=== PATIENT | male | born 1995 | race African-American/Black ===

== ENCOUNTER 2017-07-21 17:14 | Emergency (ER) | payer SELFPAY ==
[2017-07-21 17:15] VITALS: BP 111/72; PULSE 76; RESP 16; TEMP 36.9; O2SAT 98; BMI 23.2
--- NOTE | 2017-07-21 17:55 | RAD_ITS ---
STUDY: X-RAY - NASAL BONES REASON FOR EXAM: Male, 21 years old. Trauma TECHNIQUE: 3 view(s) of the nasal bones. COMPARISON: None. FINDINGS: Hairline fracture of the nasal bones Normal anterior nasal spine. There is no demonstrated soft tissue swelling. The remaining visualized osseous structures are normal. Normal visualized paranasal sinuses. RAD/Nasal Bones min 3 Views IMPRESSION: Hairline fracture of the nasal bones Electronically Signed: Garo Bustos MD at 18:43 EDT , Service support ,
--- NOTE | 2017-07-21 18:24 | ED.DCSUM_ITS ---
- ER Visit Summary Date of Service: 07/21/17 Chief Complaint: Nose injury History of Present Illness: The patient is a 21 M who reports he was playing basketball and got elbowed in the nose. He denies any bleeding. No loss of consciousness. No loose teeth or malocclusion. Physical Examination: Vitals: Stable. Afebrile. Head: Soft tissue swelling monitor initial patient over the bridge of his nose. No nasal septal hematoma. Neck: No vertebral tenderness. Full ROM without difficulty. Cleared by NEXUS criteria. Back: No vertebral tenderness. General: A&O x 3. NAD. Cardiovascular exam: Regular rate and rhythm, no murmur, rub or gallop. Respiratory exam: Chest nontender. No crepitus. Clear to auscultation bilaterally. No wheezes or stridor. Abdominal exam: Soft, nontender, nondistended, normal bowel sounds. No pain in RUQ or LUQ specifically. No peritoneal signs. Extremity: Atraumatic. No pain with range of motion. Test Results: X-ray shows a minimally displaced fracture. Emergency Department Course and Treatment: She will was treated with naproxen. Treatment Plan: Patient will be discharged instructions follow-up Dr. Horowitz in 2 weeks if he is not happy with the appearance of his nose or is having a difficult time breathing. Disposition: To home in improved and stable condition. Impression: 1. Nasal fracture. This note was generated with [employer] dictation software. It may contain incorrect words, spelling, and punctuation that were not noted in review of the chart prior to signing ED Disposition - Plan for ED Patient: Disposition: Home or Assisted Living Chief Complaint: Head Injury Instructions: ED Fx Nasal Conf W X Ray Prescriptions: Naproxen [Naprosyn] 500 mg PO BID #14 tablet Referrals: Jose Francisco Horowitz MD [STAFF PHYSICIAN] - 10-14 Days if not better
[2017-07-21] MEDS: Naproxen 250 MG Tablet 500 MG PO (18:30)
== END 2017-07-21 18:30 | disposition home or self-care (01) ==
LOC: ED 18:47
PROVIDERS: Emergency Provider Emergency Medicine
DX: S02.2XXA Fracture of nasal bones, initial encounter for closed fracture (principal); W50.0XXA Accidental hit or strike by another person, initial encounter; Y93.67 Activity, basketball; Y92.9 Unspecified place or not applicable; Y99.8 Other external cause status
CPT/HCPCS: 70160; 99283

== ENCOUNTER 2017-10-08 03:55 | Emergency (ER) | payer SELFPAY ==
[2017-10-08 03:56] VITALS: BP 147/100; PULSE 80; RESP 18; TEMP 36.4; O2SAT 100; BMI 23.8
--- NOTE | 2017-10-08 04:17 | ED.DCSUM_ITS ---
- ER Visit Summary Date of Service: 10/08/17 Chief Complaint: [] Nausea secondary to alcohol intoxication History of Present Illness: The patient is a 22 M [] he stated he drank alcohol tonight vodka. [birth year] today. He feels nauseated. Comes in for further evaluation. Current severity is mild Physical Examination: [] Vital signs reviewed General: Well-nourished well-developed Head: Normocephalic atraumatic Eyes: Pupils equal round and reactive to light extraocular movements intact ENT: TMs clear no hemotympanum no trauma Neck: Nontender full range of motion Cardiovascular: Regular rate rhythm no murmurs normal S1-S2 Respiratory: No distress clear to auscultation bilaterally chest nontender Abdomen: Soft nontender nondistended normal bowel sounds no masses Back: Nontender no CVA tenderness Extremities: Nontender active range of motion ?4 extremities no trauma Skin: Normal color no trauma Neuro alert oriented cranial nerves II through XII intact normal strength sensation reflexes Test Results: [] Emergency Department Course and Treatment: [] Given IV fluid bolus, Zofran Toradol. Will be discharged with Zofran. Will follow-up as an outpatient. Encouraged to stay away from alcohol Treatment Plan: [] Disposition: [] Impression: [] Alcohol intoxication with nausea This note was generated with [employer] dictation software. It may contain incorrect words, spelling, and punctuation that were not noted in review of the chart prior to signing ED Disposition - Plan for ED Patient: Chief Complaint: Nausea/Vomiting Referrals: Care Physician,No Primary [Primary Care Provider] -
--- NOTE | 2017-10-08 04:17 | ED.DEP ---
ED Disposition - Plan for ED Patient: Disposition: Home or Assisted Living Chief Complaint: Nausea/Vomiting Instructions: ED Alcohol Intoxication Prescriptions: Ondansetron [Zofran Odt] 4 mg PO Q8H PRN PRN #10 tab PRN Reason: Nausea Referrals: Care Physician,No Primary [Primary Care Provider] - Boubacar Lamar DO [NON CLINICAL AFFILIATE] -
[2017-10-08] MEDS: Ondansetron 4 MG/2 ML Vial IV (04:26)
[2017-10-08] MEDS: 0.9% Normal Saline 1,000 ML 1000 ML IV (04:26)
[2017-10-08] MEDS: Ketorolac 15 MG/ML Vial IV (04:27)
[2017-10-08 07:34] VITALS: BP 124/86; PULSE 76; RESP 16; O2SAT 98
== END 2017-10-08 07:00 | disposition home or self-care (01) ==
PROVIDERS: Emergency Provider Emergency Medicine
DX: F10.129 Alcohol abuse with intoxication, unspecified (principal); Y90.9 Presence of alcohol in blood, level not specified; R11.0 Nausea
CPT/HCPCS: 96361; 96374; 96375; 99283; J7030; A4216; J2405